=== PATIENT | male | born 1975 | race Caucasian/White ===

== ENCOUNTER 2021-10-10 08:22 | Outpatient (CLI) | payer MEDICAID, SELFPAY ==
[2021-10-10 13:39] LABS: Albumin* 4.1 g/dL (3.3-5.0); Chloride* 104 mmol/L (96-114)
[2021-10-10 13:40] LABS: Potassium* 4.5 mmol/L (3.6-5.1); Sodium* 139 mmol/L (135-149)
[2021-10-10 13:42] LABS: Alkaline Phosphatase* 95 U/L (40-150); Aspartate Amino Transferase* 40 U/L (12-35); Bilirubin Total* 0.5 mg/dL (0.1-1.5); Blood Urea Nitrogen* 20 mg/dL (5-24); Carbon Dioxide* 26 mmol/L (20-32); Cholesterol* 192 mg/dL (90-199); Creatinine* 1.1 mg/dL (0.5-1.5); Estimated Glomerular Filt Rate 85 ml/min; Glucose* 104 mg/dL (60-115); Total Protein* 7.1 g/dL (6.0-8.3); Triglycerides* 80 mg/dL (40-149)
[2021-10-10 13:43] LABS: Alanine Aminotransferase* 51 U/L (4-50); Calcium* 9.6 mg/dL (8.4-10.6); HDL Cholesterol* 40 mg/dL (>=40); LDL Cholesterol Calculated 136 mg/dL (<100)
== END 2021-10-10 08:23 | disposition home or self-care (01) ==
PROVIDERS: PCP Physician Assistant Medical; Visit Provider Physician Assistant Medical
DX: E78.5 Hyperlipidemia, unspecified (principal); Z79.899 Other long term (current) drug therapy
CPT/HCPCS: 80053; 80061

== ENCOUNTER 2022-04-15 17:40 | Outpatient (CLI) | payer MEDICAID, SELFPAY | END 2022-04-15 17:41 | disposition home or self-care (01) | PROVIDERS: PCP Physician Assistant Medical; Visit Provider Physician Assistant Medical | DX: I10 Essential (primary) hypertension (principal); E78.5 Hyperlipidemia, unspecified; R74.8 Abnormal levels of other serum enzymes; C18.9 Malignant neoplasm of colon, unspecified; R10.9 Unspecified abdominal pain | CPT/HCPCS: 80053; 86703; 86803 ==

== ENCOUNTER 2022-11-29 08:40 | Outpatient (CLI) | payer MEDICAID, SELFPAY | END 2022-11-29 08:41 | disposition home or self-care (01) | LOC: NFLDREF 12-01 20:05 | PROVIDERS: PCP Physician Assistant Medical; Referring Provider Physician Assistant Medical; Visit Provider Physician Assistant Medical | DX: R74.8 Abnormal levels of other serum enzymes (principal); R80.9 Proteinuria, unspecified; E78.5 Hyperlipidemia, unspecified | CPT/HCPCS: 80061; 80076 ==

== ENCOUNTER 2022-12-23 19:05 | Emergency (ER) | payer MEDICAID, SELFPAY ==
[2022-12-23 19:27] VITALS: BP 141/97; PULSE 82; RESP 20; TEMP 36.7; O2SAT 97
--- NOTE | 2022-12-23 20:04 | CRLHL7_ITS ---
For Patients: As a result of the Century Cures Act, medical imaging exams and procedure reports are released immediately into your electronic medical record. You may view this report before your referring provider. If you have questions, please contact your health care provider. INDICATION: Lower abdominal pain. History partial colectomy for colon cancer TECHNIQUE: CT Abdomen and pelvis with i.v. contrast. Coronal and sagittal reformats were obtained. CONTRAST: 150 mL Isovue 370 COMPARISON: 11/27/2017 FINDINGS: Lower chest: Unremarkable. Liver: Unremarkable. Spleen: Unremarkable. Pancreas: Unremarkable. Gallbladder: Previous cholecystectomy noted with no significant intra- or extrahepatic biliary ductal dilatation seen. Kidney: Unremarkable. No kidney or ureteral stones or obstruction seen. Adrenal: Unremarkable. Bowel: Unremarkable. The appendix is normal in appearance and size. Vascular: Unremarkable. Lymph: There are 2 lymph nodes near the GE junction noted with the largest measuring 9 mm. Both are unchanged from prior exam. Peritoneum: Unremarkable. No pneumoperitoneum is seen. No significant ascites is noted. Pelvis: Unremarkable. Soft tissue: Unremarkable. Bone: Unremarkable for age. IMPRESSION: 1. No CT correlate for the patient`s symptoms seen. Dictated by Demetri Robles MD @ 12/23/2022 9:11:21 PM Please note that all CT scans at this facility use dose modulation, iterative reconstruction, and/or weight-based dosing when appropriate to reduce radiation dose to as low as reasonably achievable. Dictated by: Demetri Robles MD @ 12/23/2022 21:11:28 (Electronically Signed)
--- NOTE | 2022-12-23 20:06 | ED.GENADULT ---
HPI - General Adult General Date Seen: 12/23/22 Chief complaint: Abdominal Pain Stated complaint: swollen intestines Time Seen by Provider: 12/23/22 19:24 Source: patient, RN notes reviewed and old records reviewed Mode of arrival: ambulatory Limitations: no limitations History of Present Illness HPI narrative: Patient is a 47-year-old male who presents for evaluation of left-sided abdominal pain. He says he woke up around 3 or 4:00 a.m. yesterday with pain that was uncomfortable throughout the day yesterday. He went to work today and says when he was distracted by work he did not notice it as much but by the time he got home it was bothering him quite a bit again. He went to urgent care and was advised to come here. When the pain is more significant he gets nauseated but he has not had vomiting. Had a normal bowel movement earlier no diarrhea or black bloody stools. He has not had urinary symptoms. No history of similar pain. He status post partial colectomy for colon cancer about 5 years ago. Had a cholecystectomy about 10 years ago. Denies other abdominal surgeries. No fevers or chills. He does not smoke, drinks occasionally. Here today with his . Related Data Home Medications Medication Instructions Recorded Confirmed naproxen 500 mg tablet 500 mg PO BID PRN 10/02/21 12/23/22 Previous Rx's Medication Instructions Recorded escitalopram oxalate 10 mg tablet 10 mg PO QDAY #90 tabs 12/02/22 ezetimibe 10 mg tablet 10 mg PO QDAY #90 tabs 12/02/22 losartan 25 mg tablet 25 mg PO QDAY #90 tabs 12/02/22 rosuvastatin 40 mg tablet 40 mg PO QDAY #90 tabs 12/02/22 Allergies Allergy/AdvReac Type Severity Reaction Status Date / Time No Known Allergies Allergy Verified 12/23/22 17:33 Review of Systems Status of ROS: Reports: 10 or more systems reviewed and unremarkable except as noted in History and below [facility] Medical History Chest pain ?R07.9 - Chest pain, unspecified (ICD-10) Heel pain ?M79.673 - Pain in unspecified foot (ICD-10) Surgical History History of third molar tooth extraction ?K08.409 - Partial loss of teeth, unspecified cause, unspecified class (ICD-10) History of colonoscopy with polypectomy ?Z98.890 - Other specified postprocedural states (ICD-10) ?Z86.010 - Personal history of colonic polyps (ICD-10) History of colectomy ?Z90.49 - Acquired absence of other specified parts of digestive tract (ICD-10) History of cholecystectomy ?Z90.49 - Acquired absence of other specified parts of digestive tract (ICD-10) Family History Father Hyperlipidemia Uncle Coronary artery disease Social History Narrative: does not use illicit drugs nonsmoker occasional alcohol consumption Smoking Status: Never smoker How often do you have a drink containing alcohol: 2-3 times a week How many standard drinks containing alcohol do you have on a typical day: 5 or 6 How often do you have six or more drinks on one occasion: Weekly AUDIT-C Alcohol total score: 8 Non-prescribed substance use: denies use Little interest or pleasure in doing things: not at all Feeling down, depressed, or hopeless: not at all Exam Narrative: Exam Narrative: Vital signs as noted above. In general, an alert, well-appearing patient. Head: Normocephalic, atraumatic. Eyes: Pupils are equal reactive. Extraocular movements are full. Conjunctivae are normal. ENT: Mucous membranes are moist. Throat is normal. Neck: Supple without lymphadenopathy. Heart: Regular rate and rhythm. No murmur or rub. Lungs: Clear bilaterally. No increased work of breathing, crackles or wheezes. Abdomen: Soft, nondistended. Some left-sided abdominal tenderness without rebound guarding or rigidity. Extremities: Well perfused. No edema. No calf tenderness. Pulses intact. Neurologic: Patient is alert and oriented to person and place. Speech is fluent. Face is symmetric. Moves all extremities equally. Affect: Normal. Skin: Warm and dry. Well perfused. Const: Vital Signs, click to edit/add: Vital Signs - 24 hr 12/23/22 19:27 12/23/22 22:14 Temperature 98.1 F Pulse Rate [Left P ulse Oximeter] 82 72 Respiratory Rate 20 16 Blood Pressure [Ri ght Upper Arm] 141/97 H 116/85 Pulse Oximetry 97 96 Oxygen Delivery Me thod Room Air Room Air Documenting provider has reviewed patient's vital signs: yes Course Course ED Course: Will place an IV, declines the need for anything for pain or nausea right now. I do think imaging with CT is worthwhile to rule out diverticulitis, colitis, obstruction, kidney stone, or other acute process. Labs and UA pending. Patient's workup here is unrevealing. His white blood cell count is normal at 5.4, hemoglobin is 15.4, diff is normal. Metabolic panel is normal, blood sugar 99, BUN 17, creatinine 0.8. Lactate is 0.7. LFTs mildly elevated, he has had this in the past AST is 47 and ALT is 54 but his bilirubin and alk-phos are normal. CRP is normal at 0.7 and lipase is normal at 41. Urinalysis shows no blood, no leukocyte esterase. CT scan by my review did not show evidence of significant inflammatory changes, obstruction, or other acute findings. Final radiology read as follows:FINDINGS: Lower chest: Unremarkable. Liver: Unremarkable. Spleen: Unremarkable. Pancreas: Unremarkable. Gallbladder: Previous cholecystectomy noted with no significant intra- or extrahepatic biliary ductal dilatation seen. Kidney: Unremarkable. No kidney or ureteral stones or obstruction seen. Adrenal: Unremarkable. Bowel: Unremarkable. The appendix is normal in appearance and size. Vascular: Unremarkable. Lymph: There are 2 lymph nodes near the GE junction noted with the largest measuring 9 mm. Both are unchanged from prior exam. Peritoneum: Unremarkable. No pneumoperitoneum is seen. No significant ascites is noted. Pelvis: Unremarkable. Soft tissue: Unremarkable. Bone: Unremarkable for age. IMPRESSION: 1. No CT correlate for the patient`s symptoms seen. I have reviewed all this with the patient. We discussed the possibility of mild diverticulitis which might not yet be seen on CT. His labs certainly do not suggest this as a diagnosis, but discussed that we could put him on an antibiotic to cover that base for a couple of days while we see how he does. I also discussed that mild uncomplicated diverticulitis does not necessarily require treatment and it would also be reasonable just to see how he does if you would prefer not to take an antibiotic. He would prefer just to see how he feels over the next couple of days. Reviewed that if he is worsening, has severe pain, vomiting, fever other acute changes he should come back to the emergency department. Otherwise, primary care follow-up if not improving over the next few days. Vital Signs Vital signs: Initial Vital Signs Temperature 98.1 F 12/23/22 19:27 Temperature Source Temporal Artery Scan 12/23/22 19:27 Pulse Rate 82 12/23/22 19:27 Pulse Rhythm Regular 12/23/22 19:27 Respiratory Rate 20 12/23/22 19:27 Blood Pressure 141/97 H 12/23/22 19:27 Blood Pressure Mean 111 H 12/23/22 19:27 Blood Pressure Position Semi-Fowlers 12/23/22 19:27 Pulse Oximetry 97 12/23/22 19:27 Oxygen Delivery Method Room Air 12/23/22 19:27 Vital Signs Temperature 98.1 F 12/23/22 19:27 Pulse Rate 82 12/23/22 19:27 Respiratory Rate 20 12/23/22 19:27 Blood Pressure 141/97 H 12/23/22 19:27 Pulse Oximetry 97 12/23/22 19:27 Oxygen Delivery Method Room Air 12/23/22 19:27 Temperature 98.1 F 12/23/22 19:27 Pulse Rate 72 12/23/22 22:14 Respiratory Rate 16 12/23/22 22:14 Blood Pressure 116/85 12/23/22 22:14 Pulse Oximetry 96 12/23/22 22:14 Oxygen Delivery Method Room Air 12/23/22 22:14 Medications Administered Medications: Discontinued Medications Generic Name Dose Route Start Last Admin Trade Name Freq PRN Reason Stop Dose Admin Sodium Chloride 1,000 mls @ 1,000 mls/hr 12/23/22 20:15 12/23/22 22:13 0.9 % Sodium Chloride 1000 Ml IV 12/23/22 21:14 Infused .Q1H FAUSTO Infusion Medical Decision Making Lab Data Labs: Lab Results 12/23/22 12/23/22 Range/Units 20:22 21:40 WBC 5.42 (4.50-11.00) K/uL RBC 5.16 (4.30-5.90) m/uL Hgb 15.4 (13.5-17.5) gm/dL Hct 45.0 (37.0-53.0) % MCV 87 (80-100) fL MCH 30 (26-34) pg MCHC 34 (32-36) gm/dL RDW Coeff of Evangelist 11.8 (11.5-15.5) % Plt Count 230 (140-440) K/uL Neut % (Auto) 53.3 (42.0-72.0) % Lymph % (Auto) 35.6 (20-44) % Nelson % (Auto) 9.2 (0.0-11.0) % Eos % (Auto) 1.5 (0.0-7.0) % Baso % (Auto) 0.4 (0.0-3.0) % Neut # (Auto) 2.89 (1.7-7.0) K/uL Lymph # (Auto) 1.93 (0.90-2.90) K/uL Nelson # (Auto) 0.50 (0.00-0.90) K/UL Eos # (Auto) 0.08 (0.00-0.50) K/uL Baso # (Auto) 0.02 (0.00-0.30) K/uL Abs Immat Gran (auto) 0.00 (0.00-0.30) K/uL Imm/Tot Granulo (auto) 0.0 % Sodium 135 (135-149) mmol/L Potassium 4.2 (3.6-5.1) mmol/L Chloride 105 (96-114) mmol/L Carbon Dioxide 23 (20-32) mmol/L Anion Gap 7 (7-15) mEq/L BUN 17 (5-24) mg/dL Creatinine 0.8 (0.5-1.5) mg/dL Estimated GFR 111 ml/min Glucose 99 (60-115) mg/dL Lactate 0.7 (0.5-1.9) mmol/L Calcium 8.6 (8.4-10.6) mg/dL Total Bilirubin 0.8 (0.1-1.5) mg/dL Direct Bilirubin 0.1 (0.0-0.5) mg/dL AST 47 H (12-35) U/L ALT 54 H (4-50) U/L Alkaline Phosphatase 82 (40-150) U/L C-Reactive Protein 0.7 (0.5-1.0) mg/dL Total Protein 7.6 (6.0-8.3) g/dL Albumin 4.3 (3.3-5.0) g/dL Lipase 41 (23-300) U/L Urine Color Yellow (Yellow) Urine Appearance Clear (Clear) Urine pH 7.5 (5.0-8.5) Ur Specific [place] 1.015 (1.000-1.030) Urine Protein Negative (Negative) Urine Glucose (UA) Negative (Negative) Urine Ketones Negative (Negative) Urine Blood Negative (Negative) Urine Nitrite Negative (Negative) Urine Bilirubin Negative (Negative) Urine Urobilinogen 0.2 (0.2-1.0) Ur Leukocyte Esterase Negative (Negative) Urine RBC 0-2 (0-2) Urine WBC 0-2 (0-5) Ur Squamous Epith Cells Few (None-Few) Urine Bacteria None (None) Discharge Plan Discharge Clinical Impression: Abdominal pain Patient Disposition: Home, Self-Care Condition: Stable Instructions: Abdominal Pain (ED) Additional Instructions: Ibuprofen and/or Tylenol as needed for pain. If pain is worsening or severe, if you have new symptoms such as vomiting, fever etcetera, return at any time to the emergency department for additional evaluation. Otherwise, if pain is persistent, you should see your primary clinic for further evaluation. Prescriptions: No Action escitalopram oxalate 10 mg tablet 10 mg PO QDAY Qty: 90 0RF Rx Instructions: once daily for restlessness ezetimibe 10 mg tablet 10 mg PO QDAY Qty: 90 3RF Rx Instructions: for cholesterol losartan 25 mg tablet 25 mg PO QDAY Qty: 90 3RF Rx Instructions: one tablet daily for high blood pressure rosuvastatin 40 mg tablet 40 mg PO QDAY Qty: 90 3RF Rx Instructions: for cholesterol naproxen 500 mg tablet 500 mg PO BID PRN Follow Up/Referrals: Daisy Butts PA-C [Primary Care Provider] - Stand Alone Forms: [employer] Info Instructions
[2022-12-23] MEDS: 0.9 % SODIUM CHLORIDE 1000 ml 1,000 ML IV (20:24)
[2022-12-23 20:30] LABS: Basophils Absolute Auto 0.02 K/uL (0.00-0.30); Basophils Percent Auto 0.4 % (0.0-3.0); Eosinophils Absolute Auto 0.08 K/uL (0.00-0.50); Eosinophils Percent Auto 1.5 % (0.0-7.0); Hemoglobin* 15.4 gm/dL (13.5-17.5); Lymphocytes Absolute Auto 1.93 K/uL (0.90-2.90); Lymphocytes Percent Auto 35.6 % (20-44); Mean Corpuscular HGB Conc 34 gm/dL (32-36); Mean Corpuscular Hemoglobin 30 pg (26-34); Mean Corpuscular Volume 87 fL (80-100); Monocytes Percent Auto 9.2 % (0.0-11.0); Neutrophils Absolute Auto 2.89 K/uL (1.7-7.0); Neutrophils Percent Auto 53.3 % (42.0-72.0); Platelet Count* 230 K/uL (140-440); RDW Coefficient of Variation % 11.8 % (11.5-15.5); Red Blood Count 5.16 m/uL (4.30-5.90); White Blood Count* 5.42 K/uL (4.50-11.00)
[2022-12-23 20:32] LABS: Lactate* 0.7 mmol/L (0.5-1.9)
[2022-12-23 20:37] LABS: Slide Review Reflex No
[2022-12-23 20:49] LABS: Albumin* 4.3 g/dL (3.3-5.0); Chloride* 105 mmol/L (96-114); Sodium* 135 mmol/L (135-149)
[2022-12-23 20:50] LABS: Potassium* 4.2 mmol/L (3.6-5.1)
[2022-12-23 20:52] LABS: Anion Gap 7 mEq/L (7-15); Bilirubin Direct* 0.1 mg/dL (0.0-0.5); Bilirubin Total* 0.8 mg/dL (0.1-1.5); Carbon Dioxide* 23 mmol/L (20-32); Creatinine* 0.8 mg/dL (0.5-1.5); Estimated Glomerular Filt Rate 111 ml/min
[2022-12-23 20:53] LABS: Alanine Aminotransferase* 54 U/L (4-50); Alkaline Phosphatase* 82 U/L (40-150); Aspartate Amino Transferase* 47 U/L (12-35); Blood Urea Nitrogen* 17 mg/dL (5-24); Calcium* 8.6 mg/dL (8.4-10.6); Glucose* 99 mg/dL (60-115); Lipase* 41 U/L (23-300); Total Protein* 7.6 g/dL (6.0-8.3)
[2022-12-23 20:55] LABS: C Reactive Protein* 0.7 mg/dL (0.5-1.0)
[2022-12-23 21:59] LABS: Appearance Urine Clear (Clear); Bilirubin Urine Negative (Negative); Blood Urine Negative (Negative); Color Urine Yellow (Yellow); Glucose Urine Negative (Negative); Ketones Urine Negative (Negative); Leukocyte Esterase Urine Negative (Negative); Nitrite Urine Negative (Negative); Protein Urine Negative (Negative); Specific Gravity Urine 1.015 (1.000-1.030); Urobilinogen Urine 0.2 (0.2-1.0); pH Urine 7.5 (5.0-8.5)
[2022-12-23 22:14] VITALS: BP 116/85; PULSE 72; RESP 16; O2SAT 96
[2022-12-23 22:26] LABS: RBC Urine 0-2 (0-2); Squamous Epithelial Cell Urine Few (None-Few); WBC Urine 0-2 (0-5)
== END 2022-12-23 22:36 | disposition home or self-care (01) ==
PROVIDERS: Emergency Provider Emergency Medicine; PCP Physician Assistant Medical
DX: R10.9 Unspecified abdominal pain (principal)
CPT/HCPCS: 36415; 74177; 80048; 80076; 81001; 83605; 83690; 85025; 86140; 99283; 99284; J7030; Q9967

== ENCOUNTER 2023-07-24 08:42 | Outpatient (CLI) | payer OTHER, SELFPAY | END 2023-07-24 08:43 | disposition home or self-care (01) | PROVIDERS: PCP Physician Assistant Medical; Visit Provider Physician Assistant Medical | DX: E78.5 Hyperlipidemia, unspecified (principal); E66.9 Obesity, unspecified; I10 Essential (primary) hypertension; M25.50 Pain in unspecified joint; R74.8 Abnormal levels of other serum enzymes | CPT/HCPCS: 80053; 80061; 84403; 84443; 86140; 86431 ==

== ENCOUNTER 2023-12-16 08:00 | Outpatient (CLI) | payer OTHER, SELFPAY ==
--- OUTSIDE RECORDS SUMMARY | 2023-12-18 13:45 | XMS_ITS | Clinical Summary ---
Author Organization [facility] Address [address] [place] [id number] Care Team Providers Care Grain Sacker Name Role Phone Daisy Butts PA-C Primary Care Provider Allergies No known active allergies Medications atorvastatin (LIPITOR) 20 MG tablet Take 20 mg by mouth At Bedtime Active Vitamin D, Cholecalciferol , 25 MCG (1000 UT) TABS Active Active Problems Problem Noted Date Diagnosed Date Colon cancer 03/18/2018 Social History Tobacco Use Types Packs/Day Years Used Date Smoking Tobacco: Never Smokeless Tobacco: Former Alcohol Use Standard Drinks/Week Comments Yes 0 (1 standard drink = 0.6 oz pur e alcohol) occasional Adolescent Education Answer Date Record ed Getting School Help Needed Not on file 11/01 Sex and Gender Information Value Date Recorded Sex Assigned at Not on file Legal Sex Male 12:56 PM [employer] Gender Identity Not on file Sexual Orientation Not on file Last Filed Vital Signs Vital Sign Reading Time Taken Comments Blood Pressure 138/93 04/11/2022 5:58 PM [employer] Pulse 70 04/11/2022 5:58 PM [employer] Temperature 36.6 ??C (97.9 ??F) 04/11/2022 5:58 PM CS T Respiratory Rate 20 04/11/2022 5:58 PM [employer] Oxygen Saturation 96% 04/11/2022 5:58 PM [employer] Inhaled Oxygen Concentration - - Weight 127 kg (280 lb) 04/19/2019 7:11 AM CDT Height 181.6 cm (5' 11.5) 04/19/2019 7:11 AM CD T Body Mass Index 38.51 04/19/2019 7:11 AM CDT Plan of Treatment Health Maintenance Due Date Last Done Comments ANNUAL REVIEW OF HM ORDERS 1977 CT COLONOGRAPHY 1977 FIT 1977 LIPID 1977 YEARLY PREVENTIVE VISIT 1977 sDNA (Cologuard) 1977 HIV SCREENING 1992 HEPATITIS C SCREENING 09/03/1995 HEPATITIS B IMMUNIZATION (1 of 3 - 19+ 3-dose series) 1996 DTAP/TDAP/TD IMMUNIZATION (1 - Tdap) 07/09/2009 07/08/2009 COLONOSCOPY 06/04/2022 04/19/2019, 10/2019, 12/29/2017 COLORECTAL CANCER SCREENING 06/04/2022 PHQ-2 (once per calendar year) 2023 FLEX SIG 03/18/2023 03/18/2018 ADVANCE CARE PLANNING 03/19/2023 03/19/2018 COVID-19 Vaccine ( season) 2023 06/23/2020, 06/02/2020 INFLUENZA VACCINE (#1) 2023 , 02/21/2020, 11/26/2017, Additional history exists GLUCOSE 04/11/2025 04/11/2022, 11/11, 03/19/2018, Additional history exists RSV VACCINE (1 - 1-dose 75+ series) 2052 HPV IMMUNIZATION Aged Out No longer e ligible based on patient's age to complete this topic MENINGITIS IMMUNIZATION Aged Out No l onger eligible based on patient's age to complete this topic Pneumococcal Vaccine: Pediatrics (0 to 5 Years) and At-Risk Patients (6 to 64 Years) Aged Out No longer eligible based on patient's age to complete this topic RSV MONOCLONAL ANTIBODY Aged Out No l onger eligible based on patient's age to complete this topic Procedures Procedure Name Priority Date/Time Associated Diagnosis Comments BASIC METABOLIC PANEL STAT 04/11/2022 7:46 PM [employer] COLONOSCOPY Routine 04/19/2019 7:02 AM CDT from Last 3 Months or Most Recently Relevant to Health Maintenance Results * (ABNORMAL) Basic metabolic panel (BMP) (04/11/2022 7:46 PM [employer]) Sodium 136 136 - 145 mmol/L 04/11/2022 8:50 PM [facility] Potassium 3.9 3.4 - 5.3 mmol/L 04/11/2022 8:50 PM [facility] Chloride 100 98 - 107 mmol/L 04/11/2022 8:50 PM [facility] Carbon Dioxide (CO2) 26 22 - 29 mmol/L 04/11/2022 8:50 PM [facility] Anion Gap 10 7 - 15 mmol/L 04/11/2022 8:50 PM [facility] Urea Nitrogen 15.4 6.0 - 20.0 mg/dL 04/11/2022 8:50 PM [facility] Creatinine 1.09 0.67 - 1.17 mg/dL 04/11/2022 8:50 PM [facility] Calcium 9.4 8.6 - 10.0 mg/dL 04/11/2022 8:50 PM [facility] Glucose 101(H) 70 - 99 mg/dL 04/11/2022 8:50 PM [facility] GFR Estimate 86 >60 mL/min/1.7 3m2 04/11/2022 8:50 PM [facility] Comment:eGFR calculated us2020 CKD-EPI equation. Blood BLOOD SPECIMEN / Unknown Venipuncture / Unknown 04/11/2022 7:46 PM [employer] 04/11/2022 8:23 PM [employer] Barber Pope MD LAB - BLOOD ORDERABLES Fi nal Result LABORATORY [facility] Lab [address] Lab (1st floor, no room number) [place] [address], [facility] [phone] * COLONOSCOPY (04/19/2019 7:02 AM CDT) Pathologist [facility] COLONOSCOPY [facility] Endoscopy Department Patient Name: Roger Juan ?Procedure Date: 04/19/2019 7:02 AM ? Date of : 1975 ?Admit Type: Outpatient Age: 43 ?Note Status: Finalized Attending MD: Trent Dale MD ? Total Sedation Time: Instrument Name: [id number] Colonoscope Procedure: ?Colonoscopy Indications: ?High risk colon cancer surveillance: Personal ?history of colon cancer Providers: ?Trent Dale MD, Grace Pisano RN Referring MD: ? Daisy Butts Medicines: ?Midazolam 2 mg IV, Fentanyl 100 micrograms IV. The ?MD provided 20 minutes of 1:1 continuous bedside ?monitoring. Complications: ?No immediate complications. Procedure: ?Pre-Anesthesia Assessment: ?- Prior to the procedure, a History and Physical ?was performed, and patient medications and ?allergies were reviewed. The patient is competent. ?The risks and benefits of the procedure and the ?sedation options and risks were discussed with the ?patient. All questions were answered and informed ?consent was obtained. Patient identification and ?proposed procedure were verified by the physician ?in the endoscopy suite. Mental Status Examination: ?alert and oriented. Airway Examination: normal ?oropharyngeal airway and neck mobility. Respiratory ?Examination: clear to auscultation. CV Examination: ?normal. Prophylactic Antibiotics: The patient does ?not require prophylactic antibiotics. Prior ?Anticoagulants: The patient has taken no previous ?anticoagulant or antiplatelet agents. ASA Grade ?Assessment: II - A patient with mild systemic ?disease. After reviewing the risks and benefits, ?the patient was deemed in satisfactory condition to ?undergo the procedure. The anesthesia plan was to ?use moderate sedation / analgesia (conscious ?sedation). Immediately prior to administration of ?medications, the patient was re-assessed for ?adequacy to receive sedatives. The heart rate, ?respiratory rate, oxygen saturations, blood ?pressure, adequacy of pulmonary ventilation, and ?response to care were monitored throughout the ?procedure. The physical status of the patient was ?re-assessed after the procedure. ?After obtaining informed consent, the colonoscope ?was passed under direct vision. Throughout the ?procedure, the patient's blood pressure, pulse, and ?oxygen saturations were monitored continuously. The ?Colonoscope was introduced through the anus and ?advanced to the cecum, identified by appendiceal ?orifice and ileocecal valve. The colonoscopy was ?performed without difficulty. The patient tolerated ?the procedure well. The quality of the bowel ?preparation was good and adequate to identify ?polyps. ? Findings: ? The perianal and digital rectal examinations were normal. Pertinent ? negatives include normal sphincter tone and no palpable rectal lesions. ? There was evidence of a prior end-to-end colo-colonic anastomosis in the ? descending colon. This was patent and was characterized by healthy ? appearing mucosa. The anastomosis was traversed. ? A 3 mm polyp was found in the anastomosis. Unclear if this was scar from ? the anastomosis or actually a polyp. The polyp was sessile. The polyp ? was removed with a jumbo cold forceps. Resection and retrieval were ? complete. ? Multiple small and large-mouthed diverticula were found in the sigmoid ? colon. There was no evidence of diverticular bleeding. ? The exam was otherwise without abnormality. ? Impression: ? - Patent end-to-end colo-colonic anastomosis, ?characterized by healthy appearing mucosa. ?- One 3 mm polyp at the anastomosis, removed with a ?jumbo cold forceps. Resected and retrieved. ?- Diverticulosis in the sigmoid colon. There was no ?evidence of diverticular bleeding. ?- The examination was otherwise normal. Recommendation: ? - Patient has a contact number available for ?emergencies. The signs and symptoms of potential ?delayed complications were discussed with the ?patient. Return to normal activities tomorrow. ?Written discharge instructions were provided to the ?patient. ?- Resume previous diet. ?- Continue present medications. ?- Await pathology results. ?- Repeat colonoscopy in 3 years for surveillance. ? Procedure Code(s): ? --- Professional --- ? 29819, Colonoscopy, flexible; with biopsy, single or multiple Diagnosis Code(s): ? --- Professional --- ? K57.30, Diverticulosis of large intestine without perforation or abscess ? without bleeding ? D12.6, Benign neoplasm of colon, unspecified ? Z98.0, Intestinal bypass and anastomosis status ? Z85.038, Personal history of other malignant neoplasm of large intestine CPT copyright 2018 [employer]. All rights reserved. The codes documented in this report are preliminary and upon ed manager review may be revised to meet current compliance requirements. _ Trent Dale MD 04/19/2019 8:06:46 AM I was physically present for the entire viewing portion of the exam. Trent Dale MD Number of Addenda: 0 Note Initiated On: 04/19/2019 7:02 AM MRN: ?[id number] Procedure Date: ? 04/19/2019 7:02:41 AM Scope Withdrawal Time: 0 hours 13 minutes 28 seconds Total Procedure Duration: 0 hours 16 minutes 21 seconds Estimated Blood Loss: ? Scope In: 7:44:21 AM Scope Out: 8:00:42 AM RADIOLOGY RESULTS 04/19/2019 7:02 AM CDT Daisy Butts PA-C PROCEDURES Final R esult RADIOLOGY RESULTS from Last 3 Months or Most Recently Relevant to Health Maintenance Insurance [facility] Advance Directives For more information, please contact: [phone] * Full Code (Latest Code Status on File) Date Activated Date Inactivated Comments 03/18/2018 1:42 PM 03/20/2018 8:50 PM Question Answer Comments Code status determined by: Discussion with gonzales nt/legal decision maker Care Teams Grain Sacker Relationship Specialty Start Date End Date Daisy Butts PA-C [facility] [address] [place] [address] PCP - General Physician Loader Helper 04/19/22
--- OUTSIDE RECORDS SUMMARY | 2023-12-18 13:45 | XMS_ITS | Clinical Summary ---
Author Organization [facility] Address [place], [place] [address] Care Team Providers Care Manual Plate Filler Name Role Phone Daisy Butts PA-C Primary Care Provider [phone] Allergies No known active allergies Medications Medication Sig Dispensed Refills Start Date End Date Status rosuvastatin (CRESTOR) 40 mg tablet Take 40 mg by mouth at bedtime. 02/16/2020 Active ezetimibe (ZETIA) 10 mg tablet Take 10 mg by mouth once daily. 02/16/2020 Active Active Problems Problem Noted Date Diagnosed Date Sensorineural hearing loss (SNHL) of both ears 0 07/11/2022 Social History Tobacco Use Types Packs/Day Years Used Date Smoking Tobacco: Never Smokeless Tobacco: Never Alcohol Use Standard Drinks/Week Comments Yes 0 (1 standard drink = 0.6 oz pur e alcohol) occasionally on weekends Social Connections Answer Date Recorded Frequency of Communication with Friends and Fami ly Not on file 02/10/2021 Financial Resource Strain Answer Date R ecorded Difficulty of Paying Living Expenses Not on file 02/10/2021 Difficulty of Paying Living Expenses Not on file 02/10/2021 Sex and Gender Information Value Date Recorded Sex Assigned at Not on file Gender Identity Not on file Sexual Orientation Not on file Obstetrics History Last Filed Vital Signs Vital Sign Reading Time Taken Comments Blood Pressure 112/72 06/21/2020 10:13 AM CDT Pulse 77 06/21/2020 10:13 AM CDT Temperature - - Respiratory Rate - - Oxygen Saturation 97% 06/21/2020 10:13 AM CDT Inhaled Oxygen Concentration - - Weight 139.3 kg (307 lb) 06/21/2020 10:13 AM CDT Height 181.6 cm (5' 11.5) 06/21/2020 10:13 AM C DT Body Mass Index 42.22 06/21/2020 10:13 AM CDT Plan of Treatment Health Maintenance Due Date Last Done Comments Tdap 1988 Depression screening for age 12+ 1989 HIV for age 15-65 1992 Hepatitis C screening for ag e 18-79 09/03/1995 Tetanus booster 1997 BMI (ht and wt on same day) for age 18+ 06/21/2021 06/21/2020 Colonoscopy through age 75 2022 COVID-19 vaccine series ( season) 2023 06/23/2020, 06/02/2020 Influenza for age 9-49 10/12/2023 Lipids for age 45-75 06/21/2025 06/21/2020 Pneumococcal series for age 6-64 Aged Out No longer eligible b ased on patient's age to complete this topic Procedures Procedure Name Priority Date/Time Associated Diagnosis Comments LIPID PANEL W REFLEX MEASURED LDL STAT 06/21/2020 10:51 AM CDT Familial hyperlipidemia from Last 3 Months or Most Recently Relevant to Health Maintenance Results * (ABNORMAL) LIPID PANEL W REFLEX MEASURED LDL (06/21/2020 10:51 AM CDT) CHOLESTEROL,TOTAL 167 100 - 199 mg/dL 06/21/2020 11:[address] [facility] TRIGLYCERIDES 111 <150 mg/dL 06/21/2020 11:[address] [facility] HDL CHOLESTEROL 34(L) >40 mg/dL 11:[address] [facility] NON-HDL CHOLESTEROL 133 <145 mg/dl 06/21/2020 11:[address] [facility] CHOL/HDL RATIO 4.91(H) <4.50 06/21/2020 11:[address] [facility] LDL CHOLESTEROL 111 <=130 mg/dL 06/21/2020 11:[address] [facility] VLDL CHOLESTEROL 22 mg/dL 06/22/19 21 11:[address] [facility] PROVIDER ORDERED STATUS RANDOM 06/21/2020 11:[address] [facility] Blood BLOOD SPECIMEN / Unknown Venipuncture / Unknown 06/21/2020 10:51 AM CDT 06/21/2020 10:51 AM CDT Yousuf Warner MD CHEMISTRY [facility] [address] [place] [address] from Last 3 Months or Most Recently Relevant to Health Maintenance Care Teams Manual Plate Filler Relationship Specialty Start Date End Date Daisy Butts PA-C [address] [place] [address] PCP - General Emergency Medicine 05/22/20
--- OUTSIDE RECORDS SUMMARY | 2023-12-18 13:45 | XMS_ITS | Referral Summary ---
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 Gender Identity Not on file Sexual Orientation Not on file Last Filed Vital Signs Vital Sign Reading Time Taken Comments Blood Pressure 138/93 04/11/2022 5:58 PM SAVINGS TELLER Pulse 70 04/11/2022 5:58 PM SAVINGS TELLER Temperature 36.6 ??C (97.9 ??F) 04/11/2022 5:58 PM CS T Respiratory Rate 20 04/11/2022 5:58 PM SAVINGS TELLER Oxygen Saturation 96% 04/11/2022 5:58 PM SAVINGS TELLER Inhaled Oxygen Concentration - - Weight 127 kg (280 lb) 04/19/2019 7:11 AM CDT Height 181.6 cm (5' 11.5) 04/19/2019 7:11 AM CD T Body Mass Index 38.51 04/19/2019 7:11 AM CDT Plan of Treatment Not on file Procedures Procedure Name Priority Date/Time Associated Diagnosis Comments BASIC METABOLIC PANEL STAT 04/11/2022 7:46 PM SAVINGS TELLER COLONOSCOPY Routine 04/19/2019 7:02 AM CDT from Last 3 Months or Most Recently Relevant to Health Maintenance Results * (ABNORMAL) Basic metabolic panel (BMP) (04/11/2022 7:46 PM SAVINGS TELLER) Pathologist [facility] Sodium 136 136 - 145 mmol/L 04/11/2022 8:50 PM [facility] TE[facility] LAB[facility] Potassium 3.9 3.4 - 5.3 mmol/L 04/11/2022 8:50 PM [facility] Chloride 100 98 - 107 mmol/L 04/11/2022 8:50 PM [facility] Carbon Dioxide (CO2) 26 22 - 29 mmol/L 04/11/2022 8:50 PM [facility] Anion Gap 10 7 - 15 mmol/L 04/11/2022 8:50 PM [facility] Urea Nitrogen 15.4 6.0 - 20.0 mg/dL 04/11/2022 8:50 PM [facility] Creatinine 1.09 0.67 - 1.17 mg/dL 04/11/2022 8:50 PM [facility] Calcium 9.4 8.6 - 10.0 mg/dL 04/11/2022 8:50 PM [facility]INGS TE[facility] Glucose 101(H) 70 - 99 mg/dL 04/11/2022 8:50 PM [facility]INGS TE[facility] GFR Estimate 86 >60 mL/min/1.7 3m2 04/11/2022 8:50 PM [facility] TE[facility] Comment:eGFR calculated usin 2020 CKD-EPI equation. Blood BLOOD SPECIMEN / Unknown Venipuncture / Unknown 04/11/2022 7:46 PM SAVINGS TELLER 04/11/2022 8:23 PM SAVINGS TELLER Barber Pope MD LAB - BLOOD ORDERABLES Fi nal Result LABORATORY [facility] [address] [facility] (1st floor, no room number) [place] [address], [facility] [phone] * COLONOSCOPY (04/19/2019 7:02 AM CDT) [facility] Patient Name: Roger Juan ?Procedure Date: 04/19/2019 7:02 AM ? Date of : 1975 ?Admit Type: Outpatient Age: 43 ?Note Status: Finalized Attending MD: Trent Dale MD ? Total Sedation Time: Instrument Name: [id number] Colonoscope Procedure: ?Colonoscopy Indications: ?High risk colon cancer surveillance: Personal ?history of colon cancer Providers: ?Trent Dale MD, Grace Pisano RN Referring MD: ? Daisy Butts [facility]: ?Midazolam 2 mg IV, Fentanyl 100 micrograms [...] The polyp ? was removed with a Codoonmbo cold forceps. Resection and retrieval were ? [...] Procedure Code(s): ? --- Professional --- ? 01264, Colonoscopy, flexible; with biopsy, single or multiple Diagnosis Code(s): ? --- Professional --- ? K57.30, Diverticulosis of large intestine without perforation or abscess ? without bleeding ? D12.6, Benign neoplasm of colon, unspecified ? Z98.0, Intestinal bypass and anastomosis status ? Z85.038, Personal history of other malignant neoplasm of large intestine CPT copyright 2018 [employer]. All rights reserved. The codes documented in this report are preliminary and upon hatchery worker review may be revised to meet current compliance requirements. _ Trent Dale MD 04/19/2019 8:06:46 AM I was physically present for the entire viewing portion of the exam. Trent Dale MD Number of Addenda: 0 Note Initiated On: 04/19/2019 7:02 AM MRN: ?[id number] Procedure Date: ? 04/19/2019 7:02:41 AM Scope Withdrawal Time: 0 hours 13 minutes 28 seconds Total Procedure Duration: 0 hours 16 minutes 21 seconds Estimated Blood Loss: ? Scope In: 7:44:21 AM Scope Out: 8:00:42 AM RADIOLOGY RESULTS 04/19/2019 7:02 AM CDT us Daisy Butts PA-C PROCEDURES Final R esult RADIOLOGY RESULTS from Last 3 Months or Most Recently Relevant to Health Maintenance [facility] Advance Direct[facility] For more information, please contact: [phone] * Full Code (Latest Code Status on File) Date Activated Date Inactivated Comments 03/18/2018 1:42 PM 03/20/2018 8:50 PM Question Answer Comments Code status determined by: Discussion with gonzales corrales/legal decision maker Care Teams Crop Quantitative Geneticist Relationship Specialty Start Date End Date Daisy Butts PA-C 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
== END 2023-12-16 08:01 | disposition home or self-care (01) ==
LOC: NFLDREF 12-18 13:43
PROVIDERS: PCP Physician Assistant Medical; Referring Provider Physician Assistant Medical; Visit Provider Physician Assistant Medical
DX: E78.5 Hyperlipidemia, unspecified (principal); I10 Essential (primary) hypertension
CPT/HCPCS: 80053; 80061

== ENCOUNTER 2024-03-24 10:01 | Outpatient (CLI) | payer OTHER, SELFPAY | END 2024-03-24 10:02 | disposition home or self-care (01) | PROVIDERS: PCP Physician Assistant Medical; Visit Provider Physician Assistant Medical | DX: I10 Essential (primary) hypertension (principal); M25.50 Pain in unspecified joint; M79.10 Myalgia, unspecified site; Z13.21 Encounter for screening for nutritional disorder | CPT/HCPCS: 80053; 82306; 82550; 82607; 86140; 86304 ==

== ENCOUNTER 2024-04-08 17:52 | Emergency (ER) | payer OTHER, SELFPAY ==
[2024-04-08 17:56] VITALS: BP 133/86; PULSE 93; RESP 18; TEMP 36.6; O2SAT 97; BMI 43.8
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
--- OUTSIDE RECORDS SUMMARY | 2024-04-08 19:18 | XMS_ITS | Clinical Summary ---
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 Gender Identity Not on file Sexual Orientation Not on file Last Filed Vital Signs Vital Sign Reading Time Taken Comments Blood Pressure 138/93 04/11/2022 5:58 PM FEED HOUSE SUPERVISOR Pulse 70 04/11/2022 5:58 PM FEED HOUSE SUPERVISOR Temperature 36.6 C (97.9 F) 04/11/2022 5:58 PM FEED HOUSE SUPERVISOR Respiratory Rate 20 04/11/2022 5:58 PM FEED HOUSE SUPERVISOR Oxygen Saturation 96% 04/11/2022 5:58 PM FEED HOUSE SUPERVISOR Inhaled Oxygen Concentration - - Weight 127 kg (280 lb) 04/19/2019 7:11 AM CDT Height 181.6 cm (5' 11.5) 04/19/2019 7:11 AM CD T Body Mass Index 38.51 04/19/2019 7:11 AM CDT Plan of Treatment Health Maintenance Due Date Last Done Comments ANNUAL REVIEW OF HM ORDERS 1977 CT COLONOGRAPHY 1977 FIT 1977 LIPID 1977 sDNA (Cologuard) 1977 YEARLY PREVENTIVE VISIT 1980 HIV SCREENING 1992 HEPATITIS C SCREENING 09/03/1995 HEPATITIS B IMMUNIZATION (1 of 3 - 19+ 3-dose series) 1996 DTAP/TDAP/TD IMMUNIZATION (1 - Tdap) 07/09/2009 07/08/2009 COLONOSCOPY 06/04/2022 04/19/2019, 10/2019, 12/29/2017 COLORECTAL CANCER SCREENING 06/04/2022 FLEX SIG 03/18/2023 03/18/2018 ADVANCE CARE PLANNING 03/19/2023 03/19/2018 COVID-19 Vaccine ( season) 2023 06/23/2020, 06/02/2020 INFLUENZA VACCINE (#1) 2023 , 02/21/2020, 11/26/2017, Additional history exists PHQ-2 (once per calendar year) 2024 GLUCOSE 04/11/2025 04/11/2022, 11/11, 03/19/2018, Additional history exists ZOSTER IMMUNIZATION (1 of 2) 09/03/2027 RSV VACCINE (1 - 1-dose 75+ series) 2052 HPV IMMUNIZATION Aged Out No longer e ligible based on patient's age to complete this topic MENINGITIS IMMUNIZATION Aged Out No l onger eligible based on patient's age to complete this topic Pneumococcal Vaccine: Pediatrics (0 to 5 Years) and At-Risk Patients (6 to 49 Years) Aged Out No longer eligible based on patient's age to complete this topic RSV MONOCLONAL ANTIBODY Aged Out No l onger eligible based on patient's age to complete this topic Procedures Procedure Name Priority Date/Time Associated Diagnosis Comments BASIC METABOLIC PANEL STAT 04/11/2022 7:46 PM FEED HOUSE SUPERVISOR COLONOSCOPY Routine 04/19/2019 7:02 AM CDT from Last 3 Months or Most Recently Relevant to Health Maintenance Results * (ABNORMAL) Basic metabolic panel (BMP) (04/11/2022 7:46 PM FEED HOUSE SUPERVISOR) Sodium 136 136 - 145 mmol/L 04/11/2022 8:50 PM FEED HOUSE SUPERVISOR LABORATORY Potassium 3.9 3.4 - 5.3 mmol/L 04/11/2022 8:50 PM FEED HOUSE SUPERVISOR LABORATORY Chloride 100 98 - 107 mmol/L 04/11/2022 8:50 PM FEED HOUSE SUPERVISOR LABORATORY Carbon Dioxide (CO2) 26 22 - 29 mmol/L 04/11/2022 8:50 PM FEED HOUSE SUPERVISOR LABORATORY Anion Gap 10 7 - 15 mmol/L 04/11/2022 8:50 PM FEED HOUSE SUPERVISOR LABORATORY Urea Nitrogen 15.4 6.0 - 20.0 mg/dL 04/11/2022 8:50 PM FEED HOUSE SUPERVISOR LABORATORY Creatinine 1.09 0.67 - 1.17 mg/dL 04/11/2022 8:50 PM FEED HOUSE SUPERVISOR LABORATORY Calcium 9.4 8.6 - 10.0 mg/dL 04/11/2022 8:50 PM FEED HOUSE SUPERVISOR LABORATORY Glucose 101(H) 70 - 99 mg/dL 04/11/2022 8:50 PM FEED HOUSE SUPERVISOR LABORATORY GFR Estimate 86 >60 mL/min/1.7 3m2 04/11/2022 8:50 PM FEED HOUSE SUPERVISOR LABORATORY Comment:eGFR calculated us2020 CKD-EPI equation. Blood BLOOD SPECIMEN / Unknown Venipuncture / Unknown 04/11/2022 7:46 PM FEED HOUSE SUPERVISOR 04/11/2022 8:23 PM FEED HOUSE SUPERVISOR Barber Pope MD LAB - BLOOD ORDERABLES Fi nal Result LABORATORY [facility] [address] Lab (1st floor, no room number) [place] [address], [facility] [phone] * COLONOSCOPY (04/19/2019 7:02 AM CDT) COLONOSCOPY [facility] Endoscopy Department Patient Name: Roger Juan Procedure Date: 04/19/2019 7:02 AM Date of : 1975 Admit Type: Outpatient Age: 43 Note Status: Finalized Attending MD: Trent Dale MD Total Sedation Time: Instrument Name: [id number] Colonoscope Procedure: Colonoscopy Indications: High risk colon cancer surveillance: Personal history of colon cancer Providers: Trent Dale MD, Grace Pisano RN Referring MD: Daisy Butts Medicines: Midazolam 2 mg IV, Fentanyl 100 micrograms IV. The MD provided 20 minutes of 1:1 continuous bedside monitoring. Complications: No immediate complications. Procedure: Pre-Anesthesia Assessment: - Prior to the procedure, a History and Physical was performed, and patient medications and allergies were reviewed. The patient is competent. The risks and benefits of the procedure and the sedation options and risks were discussed with the patient. All questions were answered and informed consent was obtained. Patient identification and proposed procedure were verified by the physician in the endoscopy suite. Mental Status Examination: alert and oriented. Airway Examination: normal oropharyngeal airway and neck mobility. Respiratory Examination: clear to auscultation. CV Examination: normal. Prophylactic Antibiotics: The patient does not require prophylactic antibiotics. Prior Anticoagulants: The patient has taken no previous anticoagulant or antiplatelet agents. ASA Grade Assessment: II - A patient with mild systemic disease. After reviewing the risks and benefits, the patient was deemed in satisfactory condition to undergo the procedure. The anesthesia plan was to use moderate sedation / analgesia (conscious sedation). Immediately prior to administration of medications, the patient was re-assessed for adequacy to receive sedatives. The heart rate, respiratory rate, oxygen saturations, blood pressure, adequacy of pulmonary ventilation, and response to care were monitored throughout the procedure. The physical status of the patient was re-assessed after the procedure. After obtaining informed consent, the colonoscope was passed under direct vision. Throughout the procedure, the patient's blood pressure, pulse, and oxygen saturations were monitored continuously. The Colonoscope was introduced through the anus and advanced to the cecum, identified by appendiceal orifice and ileocecal valve. The colonoscopy was performed without difficulty. The patient tolerated the procedure well. The quality of the bowel preparation was good and adequate to identify polyps. Findings: The perianal and digital rectal examinations were normal. Pertinent negatives include normal sphincter tone and no palpable rectal lesions. There was evidence of a prior end-to-end colo-colonic anastomosis in the descending colon. This was patent and was characterized by healthy appearing mucosa. The anastomosis was traversed. A 3 mm polyp was found in the anastomosis. Unclear if this was scar from the anastomosis or actually a polyp. The polyp was sessile. The polyp was removed with a jumbo cold forceps. Resection and retrieval were complete. Multiple small and large-mouthed diverticula were found in the sigmoid colon. There was no evidence of diverticular bleeding. The exam was otherwise without abnormality. Impression: - Patent end-to-end colo-colonic anastomosis, characterized by healthy appearing mucosa. - One 3 mm polyp at the anastomosis, removed with a jumbo cold forceps. Resected and retrieved. - Diverticulosis in the sigmoid colon. There was no evidence of diverticular bleeding. - The examination was otherwise normal. Recommendation: - Patient has a contact number available for emergencies. The signs and symptoms of potential delayed complications were discussed with the patient. Return to normal activities tomorrow. Written discharge instructions were provided to the patient. - Resume previous diet. - Continue present medications. - Await pathology results. - Repeat colonoscopy in 3 years for surveillance. Procedure Code(s): --- Professional --- 44865, Colonoscopy, flexible; with biopsy, single or multiple Diagnosis Code(s): --- Professional --- K57.30, Diverticulosis of large intestine without perforation or abscess without bleeding D12.6, Benign neoplasm of colon, unspecified Z98.0, Intestinal bypass and anastomosis status Z85.038, Personal history of other malignant neoplasm of large intestine CPT copyright 2018 [employer] [employer]. All rights reserved. The codes documented in this report are preliminary and upon automotive lube technician review may be revised to meet current compliance requirements. _ Trent Dale MD 04/19/2019 8:06:46 AM I was physically present for the entire viewing portion of the exam. Trent Dale MD Number of Addenda: 0 Note Initiated On: 04/19/2019 7:02 AM Procedure Date: 04/19/2019 7:02:41 AM Scope Withdrawal Time: 0 hours 13 minutes 28 seconds Total Procedure Duration: 0 hours 16 minutes 21 seconds Estimated Blood Loss: Scope In: 7:44:21 AM Scope Out: 8:00:42 AM RADIOLOGY RESULTS 04/19/2019 7:02 AM CDT Daisy Butts PA-C PROCEDURES Final R esult RADIOLOGY RESULTS from Last 3 Months or Most Recently Relevant to Health Maintenance Insurance [facility] Advance Directives For more information, please contact: [phone] * Full Code (Latest Code Status on File) Date Activated Date Inactivated Comments 03/18/2018 1:42 PM 03/20/2018 8:50 PM Question Answer Comments Code status determined by: Discussion with gonzales nt/legal decision maker Care Teams Planner Chief Relationship Specialty Start Date End Date Daisy Butts PA-C [facility] [place] [address] [place] [address] PCP - General Physician Resident Care Provider 04/19/22
--- OUTSIDE RECORDS SUMMARY | 2024-04-08 19:18 | XMS_ITS | Clinical Summary ---
Author Organization [facility] Address [address] [place] [address] Care Team Providers Care Tobacco Stripping Machine Operator Name Role Phone Daisy Butts PA-C Primary Care Provider [phone] Allergies No known active allergies Medications rosuvastatin (CRESTOR) 40 mg tablet Take 40 mg by mouth at bedtime. 02/16/2020 Active ezetimibe (ZETIA) 10 mg tablet Take 10 mg by mouth once daily. 02/16/2020 Active Active Problems Problem Noted Date Diagnosed Date Sensorineural hearing loss (SNHL) of both ears 0 07/11/2022 Encounters Date Type Department Care Team Description 02/25/2024 Telephone [facility] [address] [place], [place] [id number] Miguel Angel Sanches, AuD Hearing Aid (Filters ) from Last 3 Months Social History Tobacco Use Types Packs/Day Years [...] at Not on file Legal Sex Male 7:23 PM CDT Gender Identity Not on file Sexual Orientation [...] through age 75 2022 COVID-19 vaccine series (2023- season) 2023 06/23/2020, 06/02/2020 Influenza for age 9-49 10/12/2023 Lipids for age 45-75 06/21/2025 06/21/2020 Pneumococcal series for age 6-49 Aged Out No longer eligible b ased [...] - 199 mg/dL 06/21/2020 11:47 AM CDT [facility] TRIGLYCERIDES 111 <150 mg/dL 06/21/2020 11:47 AM CDT [facility] HDL CHOLESTEROL 34(L) >40 mg/dL 11:47 AM CDT [facility] NON-HDL CHOLESTEROL 133 <145 mg/dl 06/21/2020 11:47 AM CDT [facility] CHOL/HDL RATIO 4.91(H) <4.50 06/21/2020 11:47 AM CDT [facility] LDL CHOLESTEROL 111 <=130 mg/dL 06/21/2020 11:47 AM CDT [facility] VLDL CHOLESTEROL 22 mg/dL 06/22/19 11:47 AM CDT [facility] PROVIDER ORDERED STATUS RANDOM 06/21/2020 11:47 AM CDT [facility] Blood BLOOD SPECIMEN / Unknown Venipuncture / Unknown 06/21/2020 10:51 AM CDT 06/21/2020 10:51 AM CDT Yousuf Warner MD CHEMISTRY Final Re sult [facility] [address] [place] [address] from Last 3 Months or Most Recently Relevant to Health Maintenance Insurance [facility] Care Teams Tobacco Stripping Machine Operator Relationship Specialty Start Date End Date Daisy Butts PA-C [address] [place] [address] PCP - General Emergency Medicine 05/22/20
== END 2024-04-08 20:16 | disposition home or self-care (01) ==
PROVIDERS: Emergency Provider Emergency Medicine; PCP Physician Assistant Medical
DX: M54.50 Low back pain, unspecified (principal)
CPT/HCPCS: 74177; 99283; 99284; Q9967

== ENCOUNTER 2024-08-18 09:59 | Outpatient (CLI) | payer OTHER, SELFPAY | END 2024-08-18 10:00 | disposition home or self-care (01) | PROVIDERS: PCP Physician Assistant Medical; Visit Provider Physician Assistant Medical | DX: E55.9 Vitamin D deficiency, unspecified (principal); I10 Essential (primary) hypertension; E78.5 Hyperlipidemia, unspecified; R74.8 Abnormal levels of other serum enzymes; E66.9 Obesity, unspecified; M25.50 Pain in unspecified joint; R80.9 Proteinuria, unspecified | CPT/HCPCS: 80053; 80061; 82306; 84443 ==

== ENCOUNTER 2024-08-25 14:32 | Outpatient (CLI) | payer OTHER, SELFPAY ==
--- NOTE | 2024-08-25 15:00 | CRLHL7_ITS ---
For Patients: As a result of the Century Cures Act, medical imaging exams and procedure reports are released immediately into your electronic medical record. You may view this report before your referring provider. If you have questions, please contact your health care provider. Indication: LLQ ABD PAIN Technique: CT Abdomen/Pelvis W/ 145CC [id number] intravenous contrast Please note that all CT scans at this facility use dose modulation, iterative reconstruction, and/or weight-based dosing when appropriate to reduce radiation dose to as low as reasonably achievable. Comparison: 04/08/2024 Findings: Lung bases are clear. No pleural effusion. Mild hepatic steatosis. Gallbladder absent. No biliary obstruction. Spleen is normal. Incidental splenule. Normal pancreas. Adrenal glands are within normal limits. Normal kidneys. Incidental sub cm cyst within the left kidney. No renal stones. No hiatal hernia. Normal bladder. No pelvic mass. No bowel obstruction, free air, free fluid or adenopathy. Minimal sigmoid diverticulosis. No diverticulitis. Stable incidental calcification adjacent to the mid left colon. The appendix is within normal limits. Degenerative disc disease with bridging osteophyte formation L5-S1. No vertebral body compression fracture. Impression: Minimal sigmoid diverticulosis. No diverticulitis. No cause for left-sided pain. Please note that all CT scans at this facility use dose modulation, iterative reconstruction, and/or weight-based dosing when appropriate to reduce radiation dose to as low as reasonably achievable. Dictated by Sebastián Block MD @ 08/26/2024 11:05:08 AM (Electronically Signed)
== END 2024-08-25 14:33 | disposition home or self-care (01) ==
LOC: CT 14:33
PROVIDERS: PCP Physician Assistant Medical; Visit Provider Physician Assistant Medical
DX: R10.32 Left lower quadrant pain (principal); K57.30 Diverticulosis of large intestine without perforation or abscess without bleeding; R63.4 Abnormal weight loss; Z85.038 Personal history of other malignant neoplasm of large intestine
CPT/HCPCS: 74177; Q9967

== ENCOUNTER 2024-11-22 08:57 | Outpatient (CLI) | payer OTHER, SELFPAY | END 2024-11-22 08:58 | disposition home or self-care (01) | PROVIDERS: PCP Physician Assistant Medical; Visit Provider Physician Assistant Medical | DX: I10 Essential (primary) hypertension (principal); K76.0 Fatty (change of) liver, not elsewhere classified; E78.5 Hyperlipidemia, unspecified; R74.8 Abnormal levels of other serum enzymes | CPT/HCPCS: 80076; 82306 ==